=== PATIENT | male | born 1980 | race Caucasian/White ===

== ENCOUNTER 2017-12-05 16:22 | Emergency (ER) | payer OTHER ==
--- NOTE | 2017-12-05 16:38 | ED Physician Documentation ---
General Adult - HISTORIAN Historian: patient - HPI Stated Complaint: R hand injury Chief Complaint: General Adult Onset: hours Timing: still present Severity: moderate Further Comments: yes (Pt is a 37 yo male with injury to his R small finger. Pt was carrying chairs up a flight of stairs when he fell, jamming his small finger on the stairs. Pt abraded the finger tip. Tetanus status unknown.) - ROS CONST: no problems EYES/ENT: none CVS/RESP: none GI/: none MS/SKIN/LYMPH: other - PAST HX Past History: none Allergies/Adverse Reactions: Allergies Allergy/AdvReac Type Severity Reaction Status Date / Time calamine Allergy Intermediate Hives Verified 12/05/17 17:07 Home Medications: Ambulatory Orders Medication Instructions Recorded NK [NK] 12/05/17 - SOCIAL HX Smoking History: non-smoker - FAMILY HX Family History: No - VITAL SIGNS Vital Signs: Vital Signs Temp Pulse Resp BP Pulse Ox 150/82 09/13/13 13:38 - REVIEWED ASSESSMENTS Nursing Assessment Reviewed: Yes Vitals Reviewed: Yes Progress - Progress Progress: x-ray R hand 5th digit: islocation of the right 5th digit proximal interphalangeal joint is present. There is displacement of the middle phalanx posterior to the proximal phalanx. No definite fracture is identified. x-ray R hand 5th digit post-reduction: Comparison with the prior study demonstrates interval reduction of the proximal interphalangeal dislocation. A small bone fragment is present in the posterior soft tissues of the right 5th digit posterior to the interphalangeal joint consistent with a small displaced cortical fracture fragment. Toradol 60 mg IM Topical abx to abraded finger tip. Follow up with orthopedic doctor at either [facility] Tel.[phone] (ask for Orthopedic Clinic) or at [facility] Tel. [phone]. Ibuprofen 200 mg. Take 3 tablets every 8 hrs with food. Rx [place] (5/325). Take one or two tablets by mouth every 4 to 6 hrs as needed for moderate to severe pain. Disp #10 plus 4-->home. General Adult Physical Exam - PHYSICAL EXAM GENERAL APPEARANCE: moderate distress NECK: normal inspection, supple RESPIRATORY: no resp distress SKIN: other (abrasion to tip of R 5th digit of R hand, with deformity c/w dislocation at the PIP.) EXTREMITIES: other (abrasion to tip of R 5th digit of R hand, with deformity c/ w dislocation at the PIP.) NEURO: oriented X3, motor nml (unable to flex at PIP R hand 5th digit.), sensation nml Discharge Clincal Impression: R hand 5th digit dislocation/cortical fx, R hand 5th digit abrasion Referrals: Primary Doctor,No [Primary Care Provider] - Condition: Stable Disposition: 01 HOME, SELF-CARE Decision to Admit: NO Decision Time: 18:20
--- NOTE | 2017-12-05 17:39 | Diagnostic Imaging Report ---
ANNAMARIE JACK [facility] [address] [facility] [address] [place] [address]. [id number] Report Submission Date: Dec 05, 2017 5:19:38 PM CDT Patient Study Name: TRANG JERNIGAN Date: Dec 05, 2017 4:39:50 PM CDT Modality Type: DX Gender: M Description: UPPER EXTREMITY : 82 Institution: [facility] Physician: ANNAMARIE JACK Right 5th digit 3 views Date of Exam: December 05, 2017. History: FELL TODAY, PAIN IN RT HAND 5TH DIGIT (Hx) / ITS.REASON R hand 5th digit injury Findings: Dislocation of the right 5th digit proximal interphalangeal joint is present. There is displacement of the middle phalanx posterior to the proximal phalanx. No definite fracture is identified. Impression: Right 5th digit proximal interphalangeal dislocation. Electronically signed on Dec 05, 2017 5:19:38 PM CDT by: Kenneth PERAZA
--- NOTE | 2017-12-05 18:00 | Diagnostic Imaging Report ---
ANNAMARIE JACK [facility] [address] [facility] [address] [id number] Report Submission Date: Dec 05, 2017 5:55:29 PM CDT Patient Study Name: TRANG JERNIGAN Date: Dec 05, 2017 5:26:37 PM CDT Modality Type: DX Gender: M Description: UPPER EXTREMITY : 82 Institution: [facility] Physician: ANNAMARIE JACK Right 5th digit 3 views Date of Exam: December 05, 2017. History: POST REDUCTION (Hx) / ITS.REASON post reduction, R 5th digit dislocation Findings: Comparison with the prior study demonstrates interval reduction of the proximal interphalangeal dislocation. A small bone fragment is present in the posterior soft tissues of the right 5th digit posterior to the interphalangeal joint consistent with a small displaced cortical fracture fragment. Impression: Interval reduction of interphalangeal dislocation with small displaced cortical fracture fragment. Electronically signed on Dec 05, 2017 5:55:29 PM CDT by: Kenneth PERAZA
[2017-12-05] MEDS: DIPH,PERTUSS(ACELL),TET VAC/PF 0.5 ML DISP.SYRIN IM ONE (18:02)
[2017-12-05] MEDS: KETOROLAC TROMETHAMINE 60 MG/2 ML VIAL IM ONE (18:02)
[2017-12-05] MEDS: KETOROLAC TROMETHAMINE 60 MG/2 ML VIAL ONE (18:02)
[2017-12-05] MEDS: HYDROcodone /APAP 5/325 1 EACH TABLET PO ONE (18:06)
[2017-12-05 18:45] VITALS: BP 144/71
== END 2017-12-05 18:25 | disposition home or self-care (01) ==
LOC: ED 16:22
DX: S62.636B Displaced fracture of distal phalanx of right little finger, initial encounter for open fracture (principal)
CPT/HCPCS: 73140; 90471; 90715; 96372; 99283; J1885; A9270-GY